=== PATIENT | male | born 1995 | race Caucasian/White ===

== ENCOUNTER 2017-07-02 12:11 | Emergency (ER) | payer BC ==
[~2017-07-02] VITALS: Ht 177.8 cm; Wt 130.2 kg
[2017-07-02 12:19] VITALS: TEMP 37; Ht 177.8 cm; Wt 130.2 kg
[2017-07-02 12:26] VITALS: O2SAT 98
[2017-07-02] MEDS ORDERED: ALBUT/IPRATROP 3MG/0.5MG NEB 3 ML VIAL INH STA (12:28)
[2017-07-02] MEDS ORDERED: MONT1TAB5 PO (12:34)
--- NOTE | 2017-07-02 13:39 | EMERGENCY ROOM VISIT NOTE ---
History Report prepared by Gregorio: Shruthi Barbosa Under the Supervision of: Dr. Jose Villar M.D. First contact with patient: 12:25 Chief Complaint: RESPIRATORY PROBLEMS Stated Complaint: ASTHMA ATTACK History of Present Illness The patient is a 21 year old male who presents to the Emergency Room with complaints of constant respiratory problems beginning early this morning. The patient has a history of asthma. He states that last night he ate spicy food, which often triggers his asthma attacks. He woke up this morning with an asthma attack. He tried using his albuterol inhaler but it ran out. He also started a nebulizer treatment, which also ran out. He called his end user consultant who advised him to come to the ED for further evaluation. The patient reports some shortness of breath and chest pain that occurs with deep inspiration. He denies fevers, chills, and abdominal pain. He has had pneumonia in the past and states that this does not feel like pneumonia at all. Source of History: patient Onset: this morning Position: chest (respiratory) Timing: constant Modifying Factors (Worsening): breathing (deep inspiration), other (spicy foods) Associated Symptoms: + chest pain, + SOB, No fevers, No chills, No abdominal pain Review of Systems All systems have been listed, reviewed, and are negative other than those previously mentioned. Please see Additional Medical History Sheet. Past Medical & Surgical Medical Problems: (1) Asthma Family History Heart disease Social History Smoking Status: Never Smoker Smokeless Tobacco Use: No Alcohol Use: occasionally Housing Status: lives with roommate Occupation Status: employed Current/Historical Medications Scheduled Montelukast Sodium (Montelukast Sodium), 10 MG PO DAILY Scheduled PRN Albuterol Hfa (Ventolin Hfa), 2 PUFFS INH Q4 PRN for wheezing Allergies Coded Allergies: No Known Allergies (Unverified , 07/02/17) Physical Exam Vital Signs Date Time Temp Pulse Resp B/P (MAP) Pulse Ox O2 Delivery O2 Flow Rate FiO2 07/02/17 14:10 71 16 132/74 97 Room Air 07/02/17 12:26 98 Room Air 07/02/17 12:25 98 Room Air 07/02/17 12:19 37.0 81 21 134/84 98 Room Air Physical Exam GENERAL: Patient awake, alert, oriented x 3. Patient follows commands. Patient does not appear toxic. Patient is adequately hydrated and well- nourished. SKIN: No erythema, pallor, cyanosis or rash HEENT: Normal head, pupils equal, reactive to light and accommodation. Ears normal. Oral cavity and posterior pharynx appear normal. Neck: Without adenopathy, no neck vein distention. LUNGS: Clear to auscultation. No wheezes, no rales, no rhonchi. HEART: No murmurs. No gallops. No rubs ABDOMEN: Soft, nontender. EXTREMITIES: No signs of trauma or infection. NEUROLOGIC: Cranial nerves II-XII within normal limits. No gross motor sensory function deficits. Medical Decision & Procedures Medications Administered Medications (Trade) Dose Ordered Sig/Fracisco Route Start Time Stop Time Status Last Admin Dose Admin Albuterol/ Ipratropium (Duoneb) 3 ml NOW STAT INH 07/02/17 12:28 07/02/17 12:30 DC 07/02/17 12:36 3 ML ED Course 1225: Past medical records reviewed. The patient was evaluated in room B6. A complete history and physical examination was performed. 1228: Duoneb 3 ml INH 1335: I reassessed the patient at this time. He is feeling better and resting comfortably. I discussed the results and treatment plan with the patient. I answered all pertaining questions that he had. He expressed understanding and verbalized agreement. The patient will be discharged home. Medical Decision Nurses notes reviewed. Medical history sheet reviewed. Differential diagnosis includes but is not limited to: asthma, bronchitis, pneumonia. The patient feels short of breath but he does not have significant wheezes. Patient ran out of his Ventolin. The patient was given a breathing treatment here which made him feel significantly better. He is given a prescription for Ventolin with the chamber. The patient is to follow-up with his end user consultant. Medication Reconcilliation Current Medication List: was personally reviewed by me Blood Pressure Screening Patient's blood pressure: Elevated blood pressure Blood pressure disposition: Elevated BP felt to be situational Impression Primary Impression: Asthma exacerbation Scribe Attestation The scribe's documentation has been prepared under my direction and personally reviewed by me in its entirety. I confirm that the note above accurately reflects all work, treatment, procedures, and medical decision making performed by me. Departure Information Dispostion Home / Self-Care Prescriptions Albuterol Hfa (VENTOLIN HFA) 200 Puffs/52514 Mcg Aers 2 PUFFS INH Q4 Y for wheezing, #1 INHALER Dispense with chamber Prov: Jose Villar M.D. 07/02/17 Referrals [facility] Forms HOME CARE DOCUMENTATION FORM, IMPORTANT VISIT INFORMATION, WORK / SCHOOL INSTRUCTIONS Patient Instructions My [facility] Additional Instructions 2 puffs of your inhaler every 4 hours as needed for wheezing. Follow-up with your end user consultant when you return to [place]. Off work/school today.
[2017-07-02] MEDS ORDERED: VNTHFA/IN INH (13:40)
[2017-07-02 14:10] VITALS: BP 132/74; PULSE 71; O2SAT 97
== END 2017-07-02 14:28 | disposition home or self-care (01) ==
LOC: C.EDB 12:14
DX: J45.901 Unspecified asthma with (acute) exacerbation (principal); Z82.49 Family history of ischemic heart disease and other diseases of the circulatory system